=== PATIENT | female | born 1970 | race Two or more races ===

== ENCOUNTER 2016-12-10 12:50 | Emergency (ER) | payer MEDICAID ==
[~2016-12-10] VITALS: Ht 165.1 cm; Wt 92.5 kg
[2016-12-10 13:00] VITALS: BP 166/62
[2016-12-10] MEDS ORDERED: CLON0.5T PO (13:14)
[2016-12-10] MEDS ORDERED: LEVO25TA7 PO (13:14)
== END 2016-12-10 13:31 | disposition home or self-care (01) ==
LOC: ER 12:55
DX: S16.1XXA Strain of muscle, fascia and tendon at neck level, initial encounter (principal); S29.012A Strain of muscle and tendon of back wall of thorax, initial encounter; E03.9 Hypothyroidism, unspecified; V49.49XA Driver injured in collision with other motor vehicles in traffic accident, initial encounter; Y93.89 Activity, other specified; Y92.410 Unspecified street and highway as the place of occurrence of the external cause; Y99.8 Other external cause status
CPT/HCPCS: A4606; Z7610

== ENCOUNTER 2017-06-10 20:20 | Emergency (ER) | payer MEDICAID ==
[~2017-06-10] VITALS: Ht 162.6 cm; Wt 89.8 kg
[~2017-06-10 20:20] MED LIST: CLON0.5T PO; LEVO25TA7 PO
[2017-06-10 20:43] VITALS: BP 117/78
[2017-06-10 21:13] LABS: APPEARANCE,URINE Clear (CLEAR); BILIRUBIN,URINE Negative (NEGATIVE); BLOOD, URINE Negative Ery/uL (NEGATIVE); COLOR,URINE Yellow (YELLOW); KETONES,URINE Negative (NEGATIVE); LEUKOCYTE ESTERASE ,URINE Negative (NEGATIVE); NITRITE, URINE Negative (NEGATIVE); PROTEIN,URINE Negative (NEGATIVE); UGLUCOSE Negative (NEGATIVE); UROBILINOGEN,URINE 0.2 EU/dL (0.2)
== END 2017-06-10 21:42 | disposition home or self-care (01) ==
LOC: ER 20:21
DX: B37.3 Candidiasis of vulva and vagina (principal); F41.9 Anxiety disorder, unspecified; E03.9 Hypothyroidism, unspecified; Z98.890 Other specified postprocedural states
CPT/HCPCS: 81001; 99283; A4606; Z7610; 81000-TC

== ENCOUNTER 2017-06-25 03:14 | Emergency (ER) | payer MEDICAID ==
[~2017-06-25] VITALS: Ht 165.1 cm; Wt 95.3 kg
--- NOTE | 2017-06-25 03:14 | NUR ---
PT AMBULATORY TO ER BED 18. C/O FOUL SMELLING URINE W VAGINAL BLEED X 2 DAYS. DENIES FEVER. GOWNED AND PLACED ON MONITOR. 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
[2017-06-25 04:04] LABS: APPEARANCE,URINE CLEAR (CLEAR); BILIRUBIN,URINE NEGATIVE (NEGATIVE); BLOOD, URINE 3+ Ery/uL (NEGATIVE); COLOR,URINE YELLOW (YELLOW); KETONES,URINE NEGATIVE (NEGATIVE); LEUKOCYTE ESTERASE ,URINE NEGATIVE (NEGATIVE); NITRITE, URINE NEGATIVE (NEGATIVE); PH,URINE 5.5 (5.0-8.0); PROTEIN,URINE NEGATIVE (NEGATIVE); UGLUCOSE NEGATIVE (NEGATIVE); UROBILINOGEN,URINE 0.2 EU/dL (0.2)
[2017-06-25 04:09] LABS: BACTERIA,URINE Few /HPF (None Seen); SQUAMOUS EPITHELIAL CELL,UR Few /HPF (None Seen); WBC,URINE 0-2 /HPF (0-3)
[2017-06-25 04:54] LABS: BASOPHILS % (AUTO) 0.4 % (0.0-2.0); EOSINOPHILS # (AUTO) 0.1 /CMM (0.0-0.7); EOSINOPHILS % (AUTO) 1.8 % (0.0-6.0); HEMATOCRIT 37 % (33-45); HEMOGLOBIN 12.2 g/dL (11.5-14.8); LYMPHOCYTES # (AUTO) 2.4 /CMM (0.8-4.8); LYMPHOCYTES % (AUTO) 32.6 % (20.0-44.0); MEAN CORPUSCULAR HEMOGLOBIN 27 PG (26.0-33.0); MEAN CORPUSCULAR HGB CONC 33 g/dl (31.0-36.0); MEAN CORPUSCULAR VOLUME 82 fL (82-100); MONOCYTES # (AUTO) 0.3 /CMM (0.1-1.30); MONOCYTES % (AUTO) 3.4 % (2.0-12.0); NEUTROPHILS # (AUTO) 4.6 /CMM (1.8-8.9); NEUTROPHILS % (AUTO) 61.8 % (43.0-81.0); PLATELET COUNT (AUTO) 291 /CMM (150-450); RDW COEFFICIENT OF VARIATION 15.2 (11.5-15.0); RED BLOOD CELL COUNT(AUTO) 4.49 MIL/uL (4.0-5.2); WHITE BLOOD COUNT (AUTO) 7.5 K/uL (4.3-11.0)
[2017-06-25 05:09] LABS: CALCIUM, SERUM 8.6 mg/dL (8.5-10.1); CREATININE 0.8 mg/dL (0.6-1.3); POTASSIUM 3.8 mmol/L (3.5-5.1)
--- NOTE | 2017-06-25 06:19 | NUR ---
Patient discharged to home in stable condition. Written and verbal after care instructions given. Patient verbalizes understanding of instruction. ambulatory with a steady gait
[2017-06-25 06:20] VITALS: BP 117/67
== END 2017-06-25 06:20 | disposition home or self-care (01) ==
LOC: ER 03:18
DX: D25.9 Leiomyoma of uterus, unspecified (principal); R31.9 Hematuria, unspecified; F41.9 Anxiety disorder, unspecified; E03.9 Hypothyroidism, unspecified; Z98.890 Other specified postprocedural states
CPT/HCPCS: 36415; 74176; 76856; 80048; 81001; 84703; 85025; 99285; A4606; Z7610; 81000-TC

== ENCOUNTER 2017-10-02 00:24 | Emergency (ER) | payer MEDICAID ==
[~2017-10-02] VITALS: Ht 165.1 cm; Wt 95.3 kg
[2017-10-02 00:30] VITALS: BP 114/76
--- NOTE | 2017-10-02 02:07 | NUR ---
NOT IN LOBBY WHEN CALLED 4 TIMES.
== END 2017-10-02 02:08 | disposition left against medical advice (07) ==
LOC: ER 00:28
DX: R25.2 Cramp and spasm (principal); Z53.21 Procedure and treatment not carried out due to patient leaving prior to being seen by health care provider
CPT/HCPCS: A4606; Z7610

== ENCOUNTER 2017-10-13 22:27 | Emergency (ER) | payer MEDICAID, OTHER ==
[~2017-10-13] VITALS: Ht 165.1 cm; Wt 93.9 kg
[2017-10-13 22:40] VITALS: BP 127/85
[2017-10-13 23:21] LABS: APPEARANCE,URINE CLEAR (CLEAR); BILIRUBIN,URINE NEGATIVE (NEGATIVE); BLOOD, URINE NEGATIVE Ery/uL (NEGATIVE); COLOR,URINE YELLOW (YELLOW); KETONES,URINE NEGATIVE (NEGATIVE); LEUKOCYTE ESTERASE ,URINE NEGATIVE (NEGATIVE); NITRITE, URINE NEGATIVE (NEGATIVE); PH,URINE 5.5 (5.0-8.0); PROTEIN,URINE NEGATIVE (NEGATIVE); UGLUCOSE NEGATIVE (NEGATIVE); UROBILINOGEN,URINE 0.2 EU/dL (0.2)
== END 2017-10-14 01:27 | disposition home or self-care (01) ==
LOC: ER 22:28
DX: D25.9 Leiomyoma of uterus, unspecified (principal); N83.202 Unspecified ovarian cyst, left side; E03.9 Hypothyroidism, unspecified; Z98.890 Other specified postprocedural states; Z60.2 Problems related to living alone
CPT/HCPCS: 76856-TC; 81000-TC; A4606; Z7610

== ENCOUNTER 2018-04-24 10:33 | Emergency (ER) | payer MEDICAID ==
[~2018-04-24] VITALS: Ht 167.6 cm; Wt 103.4 kg
[2018-04-24 10:47] VITALS: BP 133/70
[2018-04-24 10:57] LABS: APPEARANCE,URINE Clear (CLEAR); BILIRUBIN,URINE Negative (NEGATIVE); BLOOD, URINE Negative Ery/uL (NEGATIVE); COLOR,URINE Yellow (YELLOW); KETONES,URINE Negative (NEGATIVE); LEUKOCYTE ESTERASE ,URINE Negative (NEGATIVE); NITRITE, URINE Negative (NEGATIVE); PH,URINE 6.5 (5.0-8.0); PROTEIN,URINE Negative (NEGATIVE); UGLUCOSE Negative (NEGATIVE); UROBILINOGEN,URINE 0.2 EU/dL (0.2)
== END 2018-04-24 13:07 | disposition home or self-care (01) ==
LOC: ER 10:36
DX: N32.89 Other specified disorders of bladder (principal); R82.998 Other abnormal findings in urine; F41.9 Anxiety disorder, unspecified; F90.9 Attention-deficit hyperactivity disorder, unspecified type; E03.9 Hypothyroidism, unspecified; Z98.890 Other specified postprocedural states; Z79.899 Other long term (current) drug therapy
CPT/HCPCS: 81000-TC; 87491; 87591; A4606; Z7610

== ENCOUNTER 2019-05-25 12:51 | Emergency (ER) | payer SELFPAY ==
[~2019-05-25] VITALS: Ht 165.1 cm; Wt 109.3 kg
[2019-05-25 13:05] VITALS: BP 148/92
[2019-05-25] MEDS ORDERED: diphenhydrAMINE HCL 25 MG CAPSULE ONE (13:41)
[2019-05-25] MEDS ORDERED: LORAZEPAM 1 MG TABLET ONE (13:41)
[2019-05-25] MEDS ORDERED: LORAZEPAM 1 MG TABLET PO ONE (14:00)
[2019-05-25] MEDS ORDERED: diphenhydrAMINE HCL 25 MG CAPSULE PO ONE (14:00)
--- NOTE | 2019-05-25 15:00 | NUR ---
Patient agrees to call pmd in 2 days verbalized understanding no SI
--- NOTE | 2019-05-25 15:00 | NUR ---
Patient discharged to home in stable condition. Written and verbal after care instructions given. Patient verbalizes understanding of instruction.
== END 2019-05-25 15:01 | disposition home or self-care (01) ==
LOC: ER 12:51
DX: F41.9 Anxiety disorder, unspecified (principal); E03.9 Hypothyroidism, unspecified; F90.9 Attention-deficit hyperactivity disorder, unspecified type; Z98.890 Other specified postprocedural states; Z79.899 Other long term (current) drug therapy
CPT/HCPCS: 99284; Q0163

== ENCOUNTER 2021-06-14 08:07 | Emergency (ER) | payer MEDICAID ==
[~2021-06-14] VITALS: Ht 165.1 cm; Wt 111.6 kg
--- NOTE | 2021-06-14 08:07 | NUR ---
BIBSELF C/O LOWER BACK PAIN X7DAYS "RADIATING TO LOWER ABDOMEN", PT DENIES ANY TRAUMA. PT STATED THAT LAYING DOWN HELPS ALLEVIATE HER PAIN. VITALS SIGNS ARE WITHIN NORMAL LIMITS. BREATHING IS REGULAR AND UNLABORED.
--- NOTE | 2021-06-14 08:17 | NUR ---
URINE COLLECTED AND SENT TO LAB
--- NOTE | 2021-06-14 08:19 | NUR ---
DR MALONEY AT BEDSIDE.
[2021-06-14] MEDS ORDERED: KETOROLAC TROMETHAMINE INJ 30 MG/ML VIAL IV ONE (09:00)
[2021-06-14 09:17] LABS: BASOPHILS % (AUTO) 0.4 % (0.0-2.0); EOSINOPHILS % (AUTO) 1.6 % (0.0-6.0); HEMATOCRIT 40 % (33-45); HEMOGLOBIN 12.7 g/dL (11.5-14.8); LYMPHOCYTES # (AUTO) 2.6 K/uL (0.8-4.8); LYMPHOCYTES % (AUTO) 43.4 % (20.0-44.0); MEAN CORPUSCULAR HGB CONC 32 g/dl (31.0-36.0); MEAN CORPUSCULAR VOLUME 81 fL (82-100); MONOCYTES # (AUTO) 0.4 K/uL (0.1-1.30); MONOCYTES % (AUTO) 7.3 % (2.0-12.0); NEUTROPHILS # (AUTO) 2.8 K/uL (1.8-8.9); NEUTROPHILS % (AUTO) 47.3 % (43.0-81.0); PLATELET COUNT (AUTO) 331 K/uL (150-450); RED BLOOD CELL COUNT(AUTO) 4.95 MIL/uL (4.0-5.2); WHITE BLOOD COUNT (AUTO) 5.9 K/uL (4.3-11.0)
[2021-06-14] MEDS ORDERED: KETOROLAC TROMETHAMINE 15 MG/ML VIAL ONE (09:19)
--- NOTE | 2021-06-14 09:32 | NUR ---
IV ESTABLISHED R AC 20G. LABS WERE COLLECTED AND SENT/
[2021-06-14 09:44] LABS: ALBUMIN 3.6 g/dL (3.4-5.0); BILIRUBIN,DIRECT 0.1 mg/dL (0.0-0.2); BILIRUBIN,TOTAL 0.5 mg/dL (0.2-1.0); CALCIUM, SERUM 8.8 mg/dL (8.5-10.1); CREATININE 0.9 mg/dL (0.6-1.3); TOTAL PROTEIN, SERUM 7.6 g/dL (6.4-8.2)
[2021-06-14 09:59] LABS: BILIRUBIN,URINE Negative (NEGATIVE); COLOR,URINE YELLOW (YELLOW); LEUKOCYTE ESTERASE ,URINE Negative (NEGATIVE); NITRITE, URINE Negative (NEGATIVE); PH,URINE 5.5 (5.0-8.0); PROTEIN,URINE Negative (NEGATIVE); UGLUCOSE Negative (NEGATIVE); UROBILINOGEN,URINE 0.2 EU/dL (0.2)
--- NOTE | 2021-06-14 10:17 | NUR ---
PT TAKEN TO CT
[2021-06-14 10:19] LABS: BACTERIA,URINE Few /HPF (None Seen); RBC,URINE 0-2 /HPF (0-2); SQUAMOUS EPITHELIAL CELL,UR Few /HPF (None Seen); WBC,URINE 0-2 /HPF (0-3)
--- NOTE | 2021-06-14 10:24 | NUR ---
PT BACK FROM CT
[2021-06-14] MEDS ORDERED: LIDO30AD10 TP (11:04)
--- NOTE | 2021-06-14 11:14 | NUR ---
IV removed. Catheter intact and site benign. Pressure and 4x4 applied to site. No bleeding noted. Patient discharged to home in stable condition. Written and verbal after care instructions given. Patient verbalizes understanding of instruction.
[2021-06-14 11:15] VITALS: BP 142/91
== END 2021-06-14 11:15 | disposition home or self-care (01) ==
LOC: ER 08:49
DX: M54.50 Low back pain, unspecified (principal); R10.31 Right lower quadrant pain; E03.9 Hypothyroidism, unspecified; F41.9 Anxiety disorder, unspecified; F90.9 Attention-deficit hyperactivity disorder, unspecified type; Z98.890 Other specified postprocedural states; Z79.899 Other long term (current) drug therapy
CPT/HCPCS: 36415; 74176; 80048; 80076; 81001; 84703; 85025; 96374; 99284; J1885

== ENCOUNTER 2022-02-11 08:13 | Emergency (ER) | payer MEDICAID, OTHER ==
[~2022-02-11] VITALS: Ht 165.1 cm; Wt 113.4 kg
[2022-02-11 08:13] VITALS: BP 154/85
[~2022-02-11 08:13] MED LIST changes: +LIDO30AD10 TP
--- NOTE | 2022-02-11 08:13 | NUR ---
BIBS AFTER HER DOG BIT HER THIS MORNING, DOG IS UP TO DATE ON RABIES VACCINE, SEEKING ANTIBIOTICS. 5/[address] MCKINLEY AT PT SIDE FOR EVAL.
[2022-02-11] MEDS ORDERED: AMOX-427 PO (08:35)
[2022-02-11] MEDS ORDERED: TDAP [DIPH/PERTUSSIS/TET] 0.5 ML VIAL IM ONE ×2 (08:39→09:00)
--- NOTE | 2022-02-11 08:45 | NUR ---
Patient discharged to home in stable condition. Written and verbal after care instructions given. Patient verbalizes understanding of instruction.
== END 2022-02-11 08:46 | disposition home or self-care (01) ==
LOC: ER 08:25
DX: S61.451A Open bite of right hand, initial encounter (principal); F41.9 Anxiety disorder, unspecified; E03.9 Hypothyroidism, unspecified; Z79.899 Other long term (current) drug therapy; W54.0XXA Bitten by dog, initial encounter; Y93.89 Activity, other specified; Y92.89 Other specified places as the place of occurrence of the external cause; Y99.8 Other external cause status
CPT/HCPCS: 90715

== ENCOUNTER 2022-10-27 07:25 | Emergency (ER) | payer MEDICAID, OTHER ==
[~2022-10-27] VITALS: Ht 165.1 cm; Wt 108.9 kg
[~2022-10-27 07:25] MED LIST changes: +AMOX-427 PO
--- NOTE | 2022-10-27 07:40 | NUR ---
Received PT 52 YRS FEMALE CAME FROM HOME C/O pain on rt arm and nebmess and [place] when woke up this morning moving here hand no hx truma
--- NOTE | 2022-10-27 07:50 | NUR ---
US FOR ANYI STUDY DONE AT BED SIDE
--- NOTE | 2022-10-27 08:05 | NUR ---
SPOOKE WITH PT ABOUT US RESULT AND PLAN OF CARE RT ARM BRITANY DEY
[2022-10-27] MEDS ORDERED: GABA-532 PO (08:10)
--- NOTE | 2022-10-27 08:23 | NUR ---
Patient discharged to home in stable condition. Written and verbal after care instructions given. Patient verbalizes understanding of instruction.
[2022-10-27 08:26] VITALS: BP 117/73
== END 2022-10-27 08:27 | disposition home or self-care (01) ==
LOC: ER 07:27
DX: G62.9 Polyneuropathy, unspecified (principal); F41.9 Anxiety disorder, unspecified; E03.9 Hypothyroidism, unspecified
CPT/HCPCS: 93971-TC

== ENCOUNTER 2023-03-07 22:09 | Emergency (ER) | payer MEDICAID ==
[~2023-03-07] VITALS: Ht 165.1 cm; Wt 112.0 kg
[~2023-03-07 22:09] MED LIST changes: +GABA-532 PO
[2023-03-07 22:28] VITALS: BP 145/78; TEMP 98
[2023-03-07 22:34] VITALS: O2SAT 98
== END 2023-03-07 22:35 | disposition home or self-care (01) ==
LOC: ER 22:14
DX: H92.03 Otalgia, bilateral (principal); F41.9 Anxiety disorder, unspecified; E03.9 Hypothyroidism, unspecified

== ENCOUNTER 2023-04-08 10:16 | Emergency (ER) | payer MEDICAID ==
[~2023-04-08] VITALS: Ht 165.1 cm; Wt 108.9 kg
[2023-04-08] MEDS ORDERED: IBUP-1955 PO (12:28)
[2023-04-08] MEDS ORDERED: KETOROLAC TROMETHAMINE INJ 30 MG/ML VIAL IM ONE (12:30)
[2023-04-08] MEDS ORDERED: KETOROLAC TROMETHAMINE INJ 30 MG/ML VIAL ONE (12:36)
[2023-04-08 13:00] VITALS: BP 125/80; TEMP 98.2; O2SAT 98
== END 2023-04-08 12:45 | disposition home or self-care (01) ==
LOC: ER 10:21
DX: M77.32 Calcaneal spur, left foot (principal); F41.9 Anxiety disorder, unspecified; E03.9 Hypothyroidism, unspecified; Z98.890 Other specified postprocedural states; Z79.899 Other long term (current) drug therapy
CPT/HCPCS: 99283; 96372; 73630; J1885

== ENCOUNTER 2024-01-13 18:58 | Emergency (ER) | payer MEDICAID ==
[~2024-01-13] VITALS: Ht 167.6 cm; Wt 68.0 kg
[~2024-01-13 18:58] MED LIST changes: +IBUP-1955 PO
[2024-01-13 19:30] VITALS: BP 142/86; TEMP 98.2; O2SAT 98
[2024-01-13] MEDS ORDERED: ACET-2605 PO (19:55)
[2024-01-13] MEDS ORDERED: PENI500T PO (19:55)
[2024-01-13] MEDS ORDERED: IBUP-1955 PO (19:55)
[2024-01-13] MEDS ORDERED: HYDROCODONE/APAP 5/325MG TABLET ONE (20:01)
[2024-01-13] MEDS: HYDROCODONE/APAP 5/325MG TABLET PO ONE (20:04)
== END 2024-01-13 20:06 | disposition home or self-care (01) ==
LOC: ER 19:09
DX: K08.89 Other specified disorders of teeth and supporting structures (principal); I10 Essential (primary) hypertension; E03.9 Hypothyroidism, unspecified; F41.9 Anxiety disorder, unspecified

== ENCOUNTER 2024-02-06 21:37 | Emergency (ER) | payer MEDICAID ==
[~2024-02-06] VITALS: Ht 165.1 cm; Wt 96.6 kg
[~2024-02-06 21:37] MED LIST changes: +ACET-2605 PO; +PENI500T PO
[2024-02-06 22:41] VITALS: BP 133/73; TEMP 98.2; O2SAT 98
[2024-02-06] MEDS ORDERED: AMOX1TAB16 PO (22:55)
[2024-02-06] MEDS ORDERED: IBUP-1957 PO (22:55)
== END 2024-02-06 23:10 | disposition home or self-care (01) ==
LOC: EDUNIT# 21:37 → ER 21:39
DX: K08.89 Other specified disorders of teeth and supporting structures (principal); E03.9 Hypothyroidism, unspecified; Z79.1 Long term (current) use of non-steroidal anti-inflammatories (NSAID); Z98.890 Other specified postprocedural states; Z79.899 Other long term (current) drug therapy

== ENCOUNTER 2024-09-18 19:56 | Emergency (ER) | payer MEDICAID ==
[~2024-09-18 19:56] MED LIST changes: +AMOX1TAB16 PO; +IBUP-1957 PO
== END 2024-09-18 23:18 | disposition left against medical advice (07) ==
LOC: ER 19:59
DX: T14.8XXA Other injury of unspecified body region, initial encounter (principal); Z53.21 Procedure and treatment not carried out due to patient leaving prior to being seen by health care provider; W54.0XXA Bitten by dog, initial encounter; Y93.89 Activity, other specified; Y92.89 Other specified places as the place of occurrence of the external cause; Y99.8 Other external cause status

== ENCOUNTER 2025-01-12 00:28 | Emergency (ER) | payer MEDICAID | END 2025-01-12 01:09 | disposition left against medical advice (07) | LOC: ER 00:32 | DX: T65.91XA Toxic effect of unspecified substance, accidental (unintentional), initial encounter (principal); Z53.21 Procedure and treatment not carried out due to patient leaving prior to being seen by health care provider; Y92.89 Other specified places as the place of occurrence of the external cause ==

== ENCOUNTER 2025-01-15 17:37 | Emergency (ER) | payer MEDICAID ==
[~2025-01-15] VITALS: Ht 165.1 cm; Wt 93.0 kg
[2025-01-15 18:34] VITALS: BP 110/76; TEMP 98.6; O2SAT 98
== END 2025-01-15 18:35 | disposition home or self-care (01) ==
LOC: ER 17:44
DX: M79.672 Pain in left foot (principal); E03.9 Hypothyroidism, unspecified; E11.40 Type 2 diabetes mellitus with diabetic neuropathy, unspecified; F41.9 Anxiety disorder, unspecified; Z79.1 Long term (current) use of non-steroidal anti-inflammatories (NSAID); Z79.899 Other long term (current) drug therapy; Z87.39 Personal history of other diseases of the musculoskeletal system and connective tissue

== ENCOUNTER 2025-04-03 17:43 | Emergency (ER) | payer MEDICAID ==
[~2025-04-03] VITALS: Ht 165.1 cm; Wt 93.0 kg
[2025-04-03 18:01] VITALS: BP 115/64; TEMP 98.4; O2SAT 98
[2025-04-03] MEDS ORDERED: ACETAMINOPHEN ES 500 MG TABLET ONE (19:10)
[2025-04-03] MEDS ORDERED: KETOROLAC TROMETHAMINE INJ 30 MG/ML VIAL ONE (19:10)
[2025-04-03] MEDS: KETOROLAC TROMETHAMINE INJ 30 MG/ML VIAL IM ONE (19:16)
[2025-04-03] MEDS: ACETAMINOPHEN ES 500 MG TABLET PO ONE (19:17)
[2025-04-03] MEDS ORDERED: HYDR-4209 PO (20:18)
[2025-04-03] MEDS ORDERED: KETO10TA2 PO (20:18)
== END 2025-04-03 20:48 | disposition home or self-care (01) ==
LOC: ER 17:47
DX: S63.511A Sprain of carpal joint of right wrist, initial encounter (principal); M25.531 Pain in right wrist; R22.31 Localized swelling, mass and lump, right upper limb; E03.9 Hypothyroidism, unspecified; F41.9 Anxiety disorder, unspecified; Z79.1 Long term (current) use of non-steroidal anti-inflammatories (NSAID); Z79.890 Hormone replacement therapy; Z79.899 Other long term (current) drug therapy; X58.XXXA Exposure to other specified factors, initial encounter; Y93.89 Activity, other specified; Y92.89 Other specified places as the place of occurrence of the external cause; Y99.8 Other external cause status
CPT/HCPCS: 29125; 73200; 96372; 99285; J1885